=== PATIENT | female | born 1975 ===

== ENCOUNTER 2017-10-04 11:41 | Outpatient (CLI) | payer BC | END 2017-10-04 11:59 | disposition home or self-care (01) | LOC: LAB 11:41 | DX: Z34.92 Encounter for supervision of normal pregnancy, unspecified, second trimester (principal) ==

== ENCOUNTER 2018-01-24 14:15 | Inpatient (IN) | payer OTHER ==
[~2018-01-24] VITALS: Ht 160 cm; Wt 72.1 kg
[2018-02-13] MEDS ORDERED: FISH OIL 1,0001 EAC4 PO (08:29)
[2018-02-13] MEDS ORDERED: OBSTETRIX EC C1 EACH PO (08:29)
== END 2018-02-15 11:00 | disposition home or self-care (01) | DRG 775 ==
LOC: LDR 02-13 06:33 → SURG-SUITE 02-13 06:33 → OB/GYN 02-16 14:15
PROC: 10E0XZZ Delivery of Products of Conception, External Approach (ICD-10-PCS; principal; 2018-02-13)
PROC: 0KQM0ZZ Repair Perineum Muscle, Open Approach (ICD-10-PCS; 2018-02-13)
PROC: 10907ZC Drainage of Amniotic Fluid, Therapeutic from Products of Conception, Via Natural or Artificial Opening (ICD-10-PCS; 2018-02-13)
PROC: 3E033VJ Introduction of Other Hormone into Peripheral Vein, Percutaneous Approach (ICD-10-PCS; 2018-02-13)
PROC: 4A1HXCZ Monitoring of Products of Conception, Cardiac Rate, External Approach (ICD-10-PCS; 2018-02-13)
DX: O70.1 Second degree perineal laceration during delivery (principal); Z37.0 Single live birth; Z3A.39 39 weeks gestation of pregnancy; O09.523 Supervision of elderly multigravida, third trimester

== ENCOUNTER 2018-02-12 10:22 | Outpatient (CLI) | payer OTHER ==
[2018-02-13] MEDS ORDERED: OBSTETRIX EC C1 EACH PO (08:29)
[2018-02-13] MEDS ORDERED: FISH OIL 1,0001 EAC4 PO (08:29)
== END 2018-02-12 11:42 | disposition home or self-care (01) ==
LOC: NST 10:22
DX: Z34.83 Encounter for supervision of other normal pregnancy, third trimester (principal)

== ENCOUNTER 2018-07-18 09:20 | Outpatient (CLI) | payer OTHER ==
[~2018-07-18 09:20] MED LIST: FISH OIL 1,0001 EAC4 PO; OBSTETRIX EC C1 EACH PO
== END 2018-07-18 09:22 | disposition home or self-care (01) ==
LOC: SONOGRAMA 09:20
DX: R10.13 Epigastric pain (principal)

== ENCOUNTER 2018-09-02 14:04 | Outpatient (CLI) | payer OTHER | END 2018-09-02 14:14 | disposition home or self-care (01) | LOC: SONOGRAMA 14:04 | DX: M25.572 Pain in left ankle and joints of left foot (principal); S93.432A Sprain of tibiofibular ligament of left ankle, initial encounter ==

== ENCOUNTER 2018-10-09 08:40 | Outpatient (CLI) | payer OTHER | END 2018-10-09 08:43 | disposition home or self-care (01) | LOC: SONOGRAMA 08:40 | DX: M25.572 Pain in left ankle and joints of left foot (principal); S93.432A Sprain of tibiofibular ligament of left ankle, initial encounter ==

== ENCOUNTER 2019-09-16 07:41 | Outpatient (CLI) | payer OTHER | END 2019-09-16 08:12 | disposition home or self-care (01) | LOC: RAD 07:41 | DX: R10.31 Right lower quadrant pain (principal) ==

== ENCOUNTER 2021-10-04 10:34 | Outpatient (CLI) | payer OTHER | END 2021-10-04 11:00 | disposition home or self-care (01) | LOC: MAMO-SONO 10:34 | PROVIDERS: ATTEND Family Medicine | DX: N64.4 Mastodynia (principal) ==

== ENCOUNTER 2024-09-05 11:00 | Outpatient (CLI) | payer OTHER | END 2024-09-05 11:10 | disposition home or self-care (01) | LOC: MAMO-SONO 11:00 | PROVIDERS: ATTEND Obstetrics & Gynecology | DX: N60.11 Diffuse cystic mastopathy of right breast (principal); N60.12 Diffuse cystic mastopathy of left breast; Z12.31 Encounter for screening mammogram for malignant neoplasm of breast ==